=== PATIENT | female | born 1995 | race Caucasian/White ===

== ENCOUNTER 2018-02-16 16:35 | Emergency (ER) | payer BC ==
[2018-02-16 17:23] VITALS: BP 101/76
--- NOTE | 2018-02-16 17:53 | UC ---
Back Pain HPI - HPI Summary HPI Summary: The patient is a 23 y/o F presenting to [facility] c/o upper right back and RUE pain starting this morning when she woke up. The tension-like pain is rated 3/10 in severity. Lying down aggravates the pain, and the pain is not alleviated by anything. She additionally had numbness in her upper right arm and nausea. She has not experienced this before. - History of Current Complaint Chief Complaint: UCBackPain Stated Complaint: RASHES,ARM NUMBNESS,HEADACHE Time Seen by Provider: 02/16/18 17:40 Hx Obtained From: Patient Hx Last Menstrual Period: 02/12/18 Onset/Duration: Sudden Onset, Lasting Hours, Still Present Timing: Lasting Hours Severity Initially: Mild Severity Currently: Mild Pain Intensity: 3 Pain Scale Used: 0-10 Numeric Back Pain: Is Discrete @ - right upper back Aggravating Factor(s): Other - lying down Alleviating Factor(s): Nothing Associated Signs And Symptoms: Positive: Numbness - in upper right arm, Other - pain in upper right arm Full Body (No Head): 1 - pain in upper right arm 2 - pain in upper right back - Allergies/Home Medications Allergies/Adverse Reactions: Allergies Allergy/AdvReac Type Severity Reaction Status Date / Time No Known Allergies Allergy Verified 02/16/18 17:23 PMH/Surg Hx/FS Hx/Imm Hx Endocrine History: Other Other Endocrine History: NEGATIVE: diabetes Respiratory History: Other Other Respiratory History: NEGATIVE: asthma - Surgical History Surgical History: None - Family History Known Family History: Negative: Cardiac Disease, Hypertension, Diabetes - Social History Alcohol Use: Rare Substance Use Type: None Smoking Status (MU): Current Some Day Smoker Review of Systems Musculoskeletal: Other: - pain in right upper back and right upper extremity Neurological: Numbness - in upper right arm All Other Systems Reviewed And Are Negative: Yes Physical Exam - Summary Physical Exam Summary: VITAL SIGNS: Reviewed. GENERAL: Patient is a well-developed and nourished female who is lying comfortable in the stretcher. Patient is not in any acute respiratory distress. HEAD AND FACE: Normocephalic EYES: PERRLA, EOMI x 2. EARS: Hearing grossly intact. MOUTH: Oropharynx within normal limits. NECK: Supple, trachea is midline, no adenopathy, no JVD, no carotid bruit. CHEST: Symmetric, no tenderness at palpation LUNGS: Clear to auscultation bilaterally. No wheezing or crackles. CVS: Regular rate and rhythm, S1 and S2 present, no murmurs or gallops appreciated. Good pulses, good capillary refill ABDOMEN: Soft, non-tender. Bowel sounds are normal. No abdominal abnormal pulsations. EXTREMITIES: Full ROM in all major joints, no edema, no cyanosis or clubbing. Good muscular movements. No vertebral tenderness, Tenderness in the paraspinal muscles of T spine NEURO: Alert and oriented x 3. No acute neurological deficits. Speech is normal and follows commands. SKIN: Dry and warm Triage Information Reviewed: Yes Vital Signs: Initial Vital Signs Temp 98.8 F 02/16/18 17:16 Pulse 93 02/16/18 17:16 Resp 16 02/16/18 17:16 BP 101/76 02/16/18 17:16 Pulse Ox 100 02/16/18 17:16 Vital Signs Reviewed: Yes Back Pain Course/Dx - Course Course Of Treatment: Patient is a 23-year-old female with a right upper back pain that extends to the right upper extremity with some tingling sensation. Pain is reproducible with palpation. I believe that the patient has a skeletal pain. There is no history of trauma or heavy lifting, and there is no need for x -rays. Patient was given a prescription for prednisone and ibuprofen. Patient will be discharged home with follow-up with PCP. She was instructed to return to the urgent care or go to the emergency department if the symptoms worsen. She understands and agrees. She is hemodynamically stable alert and oriented 3. - Differential Dx/Diagnosis Provider Diagnoses: upper back pain. Parestesias Discharge - Sign-Out/Discharge Documenting (check all that apply): Patient Departure - Patient will be discharged home. All imaging exams completed and their final reports reviewed: No Studies - Discharge Plan Condition: Stable Disposition: HOME Prescriptions: Ibuprofen TAB* [Motrin TAB* 800 MG] 800 mg PO Q8H #20 tab methylPREDNISolone [Medrol Dosepak 4 MG*] 0 mg PO .SEE SAIRA INSTRUCTION #1 saira Patient Education Materials: Paresthesia (ED), Musculoskeletal Pain (ED) Referrals: [facility] [Outside] Additional Instructions: Take medications as instructed and adhere to plan Take Acetaminophen or ibuprofen for pain or fever Increase your fluid intake Return to the or go to the emergency department if symptoms worsen Follow-up with primary care physician in next 2-3 days - Billing Disposition and Condition Condition: STABLE Disposition: Home - Attestation Statements Document Initiated by Timibe: Yes Documenting Scribe: Nathaly Ramesh Provider For Whom Jojo is Documenting (Include Credential): Dr. Kulwinder Hebert MD Scribe Attestation: Nathaly Valerio scribed for Dr. Kulwinder Hebert MD on 02/16/18 at 1953. Scribe Documentation Reviewed: Yes Provider Attestation: The documentation as recorded by the Nathaly luna accurately reflects the service I personally performed and the decisions made by me, Dr. Kulwinder Hebert MD
== END 2018-02-16 18:15 | disposition home or self-care (01) ==
LOC: UCEAST 16:35
DX: M54.6 Pain in thoracic spine (principal); R20.2 Paresthesia of skin; Z72.0 Tobacco use
CPT/HCPCS: 99202; G0463